=== PATIENT | male | born 1985 | race Asian ===

== ENCOUNTER → 2017-10-04 09:54 | Outpatient (CLI) | payer OTHER, SELFPAY ==
--- NOTE | 2017-10-04 09:58 | DI.RAD.S_ITS ---
PROCEDURE: XR KNEE LT 3V INDICATIONS: L knee pain, previous soccer injury TECHNIQUE: 3 views of the knee were acquired. COMPARISON: None. FINDINGS: Bones: No fractures or dislocations. No suspicious bony lesions. Bipartite appearance of the patella, chronic. Deep lateral sulcus sign is present suggestive of lateral femoral osteochondral impaction injury related to ACL injury Soft tissues: No joint effusion. No suspicious soft tissue calcifications. IMPRESSION: Deep sulcus sign suggestive of lateral femoral osteochondral impaction injury, which is often related to ACL tear. Please correlate clinically and based on clinical suspicion, further evaluation with MRI could be performed. Chronic bipartite patella Dictated by: Richard Franks M.D. on 10/04/2017 at 12:16 Approved by: Richard Franks M.D. on 10/04/2017 at 12:24
[2017-10-04 10:27] LABS: Add Manual Diff / Slide Review NO; Basophils Percent Auto 0.6 % (0-2); Eosinophils Percent Auto 3.2 % (2-4); Hematocrit 46.2 % (41-53); Hemoglobin 15.5 g/dL (13.5-17.5); Lymphocytes Percent Auto 32.2 % (25-40); Mean Corpuscular HGB Conc 33.5 % (30-36); Mean Corpuscular Hemoglobin 27.9 PG (26-34); Mean Corpuscular Volume 83.3 fL (80-100); Monocytes Percent Auto 7.4 % (3-14); Neutrophils Absolute Auto 2500 /uL (3000-5900); Neutrophils Percent Auto 56.6 % (50-75); Platelet Count 239 X10^3/uL (150-400); Red Blood Cell Count 5.55 X10^6/uL (4.5-5.9); Red Cell Distribution Width 12.5 % (11.6-14.8); White Blood Cell Count 4.4 X10^3/uL (4.5-11.0)
[2017-10-04 10:32] LABS: Hemoglobin A1C% w Est Avg Glu 5.2 % (4.0-6.0)
== END ==
PROVIDERS: PCP Physician Assistant; Visit Provider Nurse Practitioner Family
DX: M25.562 Pain in left knee (principal)
CPT/HCPCS: 36415; 73562; 83036; 85025

== ENCOUNTER → 2021-01-15 10:18 | Outpatient (CLI) | payer OTHER, SELFPAY ==
[2021-01-15 10:44] LABS: COVID19 -Nasal RAPID Negative (Negative)
== END ==
PROVIDERS: Visit Provider Physician Assistant
DX: Z20.822 Contact with and (suspected) exposure to COVID-19 (principal)
CPT/HCPCS: 87635

== ENCOUNTER → 2022-10-17 10:16 | Outpatient (CLI) | payer OTHER, SELFPAY ==
--- NOTE | 2022-10-17 | DI.NM.S_ITS ---
PROCEDURE: NM UPTAKE AND SCAN RADIOPHARMACEUTICAL: 378 ?Ci I-123 sodium iodide by mouth. INDICATIONS: Thyrotoxicosis, unspecified without thyrotoxic crisis or sto TECHNIQUE: I-123 sodium iodide was administered orally. Anterior neck images were obtained, and iodine uptake by the thyroid gland calculated using [employer]'s software. COMPARISON: None. FINDINGS: Morphology: The thyroid gland has normal morphology and uniform activity. No 'cold' or 'hot' thyroid nodules are identified. Uptake: 6 hour thyroid uptake is 5.8%; normal ranges are from 6-18%. 24 hour thyroid uptake is 8.6%; normal ranges are from 10-30%. IMPRESSION: 1. There is uniform uptake in thyroid gland. 2. Slightly decreased 6-hour and 24-hour radioactive iodine uptake. The results suggest subacute thyroiditis. Recommend clinical correlation. Dictated by: Mary Ellen Noel M.D. on 10/18/2022 at 10:21 Approved by: Mary Ellen Noel M.D. on 10/18/2022 at 10:23
== END ==
PROVIDERS: Referring Provider Internal Medicine Endocrinology, Diabetes & Metabolism; Visit Provider Internal Medicine Endocrinology, Diabetes & Metabolism
DX: E05.90 Thyrotoxicosis, unspecified without thyrotoxic crisis or storm (principal)
CPT/HCPCS: 78014; A9516

== ENCOUNTER → 2024-03-26 08:12 | Outpatient (CLI) | payer OTHER, SELFPAY ==
--- NOTE | 2024-03-26 08:14 | DI.RAD.S_ITS ---
PROCEDURE: XR WRIST RT MIN 3V INDICATIONS: Wrist pain TECHNIQUE: 4 views of the wrist were acquired. COMPARISON: None. FINDINGS: Bones: Cortical irregularity involving the distal scaphoid is noted. Otherwise no definite fractures or dislocations. No suspicious bony lesions. Soft tissues: No suspicious soft tissue calcifications. IMPRESSION: Distal scaphoid cortical irregularity may represent healed fracture versus nondisplaced hairline fracture. Correlate for point tenderness and consider ordering CT or MRI of the wrist for better assessment. Dictated by: Angelito Robertson M.D. on 03/26/2024 at 14:37 Approved by: Angelito Robertson M.D. on 03/26/2024 at 14:41
== END ==
PROVIDERS: Referring Provider Nurse Practitioner Family; Visit Provider Nurse Practitioner Family
DX: S66.911A Strain of unspecified muscle, fascia and tendon at wrist and hand level, right hand, initial encounter (principal); X58.XXXA Exposure to other specified factors, initial encounter
CPT/HCPCS: 73110